=== PATIENT | female | born 1990 | race Caucasian/White ===

== ENCOUNTER 2021-10-30 16:26 | Inpatient (IN) | payer BC ==
[2021-10-30] MEDS ORDERED: Lidocaine 1% 50 ML MDV INJECT PRN (16:38)
[2021-10-30] MEDS ORDERED: Nalbuphine HCl 10 MG/ 1ML Amp IVPUSH PRN (16:38)
[2021-10-30] MEDS ORDERED: Calcium Carbonate 500 MG Tab.Chew PO PRN (16:38)
[2021-10-30] MEDS ORDERED: Ondansetron 4 MG/2 ML SDV IVPUSH PRN (16:38)
[2021-10-30] MEDS ORDERED: Oxytocin/Lactated Ringers 10 UNIT/1,000 ML BAG IV SCH (16:45)
[2021-10-30] MEDS: Lactated Ringers 1,000 ML IV SCH ×3 (17:57→19:05)
[2021-10-30] MEDS ORDERED: diphenhydrAMINE 50 MG/ML SDV IVPUSH ONE (19:16)
[2021-10-30] MEDS ORDERED: ePHEDrine 50 MG/ML SDV IVPUSH PRN (19:34)
[2021-10-30] MEDS ORDERED: diphenhydrAMINE 50 MG/ML SDV IVPUSH PRN (19:34)
[2021-10-30] MEDS ORDERED: fentaNYL 100 MCG/2 ML SDV EPIDUR PRN (19:34)
[2021-10-30] MEDS ORDERED: Bupivacaine/fentaNYL/NS 100 ML Bag EPIDUR PRN (19:34)
[2021-10-31] MEDS ORDERED: Bupivacaine 0.25% 10 ML SDV ONE
[2021-10-31] MEDS: Lactated Ringers 1,000 ML IV SCH (00:18)
[2021-10-31] MEDS ORDERED: Witch Hazel Medicated Pads 40/Jar TOP PRN (00:39)
[2021-10-31] MEDS ORDERED: Docusate Sodium 100 MG Cap PO PRN (00:39)
[2021-10-31] MEDS ORDERED: Acetaminophen 325 MG Tab PO PRN (00:39)
[2021-10-31] MEDS ORDERED: Benzocaine/Menthol 20%-0.5% Spray 78 GM Cannister TOP PRN (00:39)
[2021-10-31] MEDS: Ibuprofen 600 MG Tab PO PRN ×3 (03:38→18:58)
[2021-10-31] MEDS ORDERED: Levothyroxine 100 MCG Tab PO SCH (06:00)
[2021-10-31] MEDS: Prenatal Multivitamin with Calcium/Folic Acid/Iron Tab PO SCH (07:23)
== END 2021-11-01 12:25 | disposition home or self-care (01) | DRG 560 ==
LOC: JD.OBCHECK 16:26 → JD.OB 16:31 → JD.OBCHECK 16:37 → JD.OB 16:38 → JD.OBCHECK 17:10 → JD.OB 17:10 → OBSVTOIN 10-31 00:38 → JD.OB 10-31 00:39
PROVIDERS: ADMIT Obstetrics & Gynecology; ATTEND Obstetrics & Gynecology
PROC: 10E0XZZ Delivery of Products of Conception, External Approach (ICD-10-PCS; principal; 2021-10-31)
PROC: 0HQ9XZZ Repair Perineum Skin, External Approach (ICD-10-PCS; 2021-10-31)
PROC: 3E0R3BZ Introduction of Anesthetic Agent into Spinal Canal, Percutaneous Approach (ICD-10-PCS; 2021-10-31)
DX: O99.824 Streptococcus B carrier state complicating childbirth (principal); Z3A.38 38 weeks gestation of pregnancy; Z37.0 Single live birth; O70.0 First degree perineal laceration during delivery; O99.284 Endocrine, nutritional and metabolic diseases complicating childbirth; E03.9 Hypothyroidism, unspecified; Z88.0 Allergy status to penicillin
CPT/HCPCS: 36415; 51702; 59025; 59409; 85025; 86592; A9270-GY; J1200; J2590; J3010; J3370; J3490; J7050; J7120

== ENCOUNTER 2023-09-10 17:37 | Day surgery (SDC) | payer BC, OTHER ==
[2023-09-10 18:50] LABS: BASOPHILS ABSOLUTE AUTO 0.1 K/mm3 (0.0-0.2); BASOPHILS PERCENT AUTO 0.4 % (0.0-1.0); EOSINOPHILS ABSOLUTE AUTO 0.1 K/mm3 (0.0-0.4); HEMATOCRIT 36.6 % (37.0-47.0); HEMOGLOBIN 12.8 gm/dl (12.0-16.0); IMMATURE GRAN ABSOLUTE AUTO 0.05 K/mm3 (0.00-0.05); IMMATURE GRAN PERCENT AUTO 0.4 % (0.0-0.4); LYMPHOCYTES ABSOLUTE AUTO 1.4 K/mm3 (1.0-4.8); LYMPHOCYTES PERCENT AUTO 11.3 % (24.0-44.0); MEAN CORPUSCULAR HEMOGLOBIN 30.9 pg (28.0-32.0); MEAN CORPUSCULAR VOLUME 88.4 fl (83.0-99.0); MEAN PLATELET VOLUME 10.2 fl (9.4-12.3); MONOCYTES ABSOLUTE AUTO 0.5 K/mm3 (0.0-0.8); NEUTROPHILS ABSOLUTE AUTO 10.3 K/mm3 (1.8-7.7); NEUTROPHILS PERCENT AUTO 82.9 % (41.0-71.0); PLATELET COUNT,PLT 226 K/mm3 (150-400); RED BLOOD CELL COUNT 4.14 M/mm3 (4.10-5.30); WHITE BLOOD CELL COUNT,WBC 12.39 K/mm3 (3.9-11.3)
[2023-09-10] MEDS ORDERED: Naloxone 0.4 MG/ML SDV IVPUSH PRN ×2 (19:03→21:16)
[2023-09-10 19:08] LABS: A/G RATIO 1.5 (1-2); ALBUMIN 4.2 g/dl (3.4-5.0); ANION GAP 16.5 (5-15); BILIRUBIN TOTAL 0.6 mg/dL (0.2-1.0); C-REACTIVE PROTEIN 0.06 mg/dL (<0.30); CALCIUM 8.7 mg/dL (8.5-10.1); EST CRCL DRUG DOSING (CG) 79.96 mL/min; POTASSIUM,K 3.5 mEq/L (3.5-5.1); PROTEIN TOTAL,TP 7.1 g/dl (6.4-8.2)
[2023-09-10] MEDS: Ondansetron 4 MG/2 ML SDV IVPUSH ONE (20:04)
[2023-09-10] MEDS: Lactated Ringers 1,000 ML IV ONE (20:04)
[2023-09-10] MEDS: fentaNYL 100 MCG/2 ML SDV IVPUSH ONE ×3 (20:06→22:42)
[2023-09-10] MEDS ORDERED: Propofol 200 MG/20 ML SDV ONE ×3 (21:28→22:19)
[2023-09-10] MEDS ORDERED: Midazolam 1 MG/ML 2 ML SDV ONE (21:30)
[2023-09-10] MEDS ORDERED: Rocuronium 50 MG/5 ML Vial ONE (21:31)
[2023-09-10] MEDS ORDERED: fentaNYL 100 MCG/2 ML SDV ONE ×2 (21:31→22:40)
[2023-09-10] MEDS ORDERED: Ondansetron 4 MG/2 ML SDV ONE (21:32)
[2023-09-10] MEDS ORDERED: Dexamethasone 4 MG/ML 5 ML MDV ONE (21:32)
[2023-09-10] MEDS ORDERED: Ketorolac 30 MG/ML SDV ONE (21:32)
[2023-09-10] MEDS ORDERED: dexmedeTOMIDine HCl 200 MCG/2 ML SDV ONE (21:37)
[2023-09-10] MEDS ORDERED: ceFAZolin 2 GM Vial ONE (22:03)
[2023-09-10] MEDS ORDERED: Lactated Ringers 1,000 ML ONE (22:21)
[2023-09-10] MEDS ORDERED: HYDROmorphone 0.5 MG/0.5 ML Syringe ONE ×2 (22:23→22:24)
[2023-09-10] MEDS ORDERED: Sugammadex Sodium 200 MG/2 ML VIAL IV ONE (22:44)
[2023-09-10] MEDS: Bupivacaine 0.5% 30 ML SDV ONE (23:11)
[2023-09-11] MEDS: Ondansetron 4 MG/2 ML SDV ONE (00:08)
[2023-09-11] MEDS ORDERED: HYDROmorphone 0.5 MG/0.5 ML Syringe IVPUSH PRN (00:09)
[2023-09-11] MEDS ORDERED: fentaNYL 100 MCG/2 ML SDV IVPUSH PRN (00:09)
[2023-09-11] MEDS: HYDROmorphone 0.5 MG/0.5 ML Syringe ONE (00:18)
[2023-09-11] MEDS ORDERED: Acetaminophen 325 MG Tab PO PRN (00:24)
[2023-09-11] MEDS ORDERED: HYDROmorphone 0.5 MG/0.5 ML Syringe ONE (01:09)
[2023-09-11] MEDS ORDERED: Acetaminophen/oxyCODONE 325-5 MG Tab ONE (02:26)
[2023-09-11] MEDS: Acetaminophen/oxyCODONE 325-5 MG Tab PO PRN (02:29)
== END 2023-09-11 02:35 | disposition home or self-care (01) ==
LOC: JD.ED 17:37 → JD.SDS 22:18
PROVIDERS: ATTEND Obstetrics & Gynecology
DX: O00.101 Right tubal pregnancy without intrauterine pregnancy (principal); N83.8 Other noninflammatory disorders of ovary, fallopian tube and broad ligament; K21.9 Gastro-esophageal reflux disease without esophagitis; E03.9 Hypothyroidism, unspecified; Z79.890 Hormone replacement therapy; Z79.899 Other long term (current) drug therapy; Z88.0 Allergy status to penicillin; Z91.040 Latex allergy status
CPT/HCPCS: 00840; 36415; 76830; 76830-26; 80053; 83690; 84702; 85025; 86140; 86850; 86900; 86901; 96361; 96374; 96375; 96376; 99140; 99285; 99285-25; A9270-GY; J0665; J0690; J1100; J1170; J1885; J2250; J2405; J2704; J3010; J3490; J7120